=== PATIENT | male | born 1975 | race African-American/Black ===

== ENCOUNTER 2022-04-28 19:22 | Emergency (ER) | payer BC ==
[2022-04-28] MEDS ORDERED: cefTRIAXone\\ROCEPHIN 500 MG VIAL ONE (20:00)
[2022-04-28] MEDS ORDERED: Lidocaine 1% MPF 2 ML VIAL ONE (20:00)
[2022-04-28 20:07] LABS: Bilirubin Neg (Negative); Blood, Urine Negative (Negative); Glucose, Urine (Dipstick) Normal (Negative); Ketone, Urine Negative (Negative); Leukocyte Negative (Negative); Nitrite Negative (Negative); Protein, Urine (Dipstick) Negative (Neg-Trace); Specific Gravity, Urine 1.025 (1.005-1.030); Urobilinogen Normal mg/dL (Less than 2)
[2022-04-28 20:10] LABS: Clarity Clear (Clear)
[2022-04-28] MEDS ORDERED: Doxycycline 100 MG CAP PO SCH (20:15)
[2022-04-29 16:24] LABS: Chlam.trachomatis by PCR,Urine Not Detected (NotDetected)
== END 2022-04-28 20:40 | disposition home or self-care (01) ==
LOC: CSHERS 19:22
DX: R30.0 Dysuria (principal); E78.00 Pure hypercholesterolemia, unspecified; Z91.14 Patient's other noncompliance with medication regimen; Z20.2 Contact with and (suspected) exposure to infections with a predominantly sexual mode of transmission
CPT/HCPCS: 81003; 87086; 87491; 87591; 96372; 99283; J0696

== ENCOUNTER 2022-05-19 06:36 | Emergency (ER) | payer BC ==
[2022-05-19] MEDS ORDERED: Ibuprofen 200 MG TAB ONE (08:11)
== END 2022-05-19 08:07 | disposition home or self-care (01) ==
LOC: CSHERS 06:36
DX: S46.201A Unspecified injury of muscle, fascia and tendon of other parts of biceps, right arm, initial encounter (principal); E78.00 Pure hypercholesterolemia, unspecified; Y04.0XXA Assault by unarmed brawl or fight, initial encounter